=== PATIENT | female | born 1990 | race Caucasian/White ===

== ENCOUNTER 2021-07-17 18:04 | Emergency (ER) | payer OTHER ==
[~2021-07-17] VITALS: Ht 165.1 cm; Wt 97.5 kg
[2021-07-17] MEDS ORDERED: COZAAR25 MG PO (18:15)
[2021-07-17] MEDS ORDERED: CIPRO500 MG PO (22:04)
[2021-07-17] MEDS ORDERED: ZOFRAN8 MG PO (22:04)
[2021-07-17] MEDS ORDERED: PEPCID AC20 MG PO (22:04)
== END 2021-07-17 22:18 | disposition home or self-care (01) ==
LOC: ER 18:04
DX: K52.89 Other specified noninfective gastroenteritis and colitis (principal); Z03.818 Encounter for observation for suspected exposure to other biological agents ruled out

== ENCOUNTER 2022-02-25 11:35 | Emergency (ER) | payer OTHER ==
[~2022-02-25] VITALS: Ht 165.1 cm; Wt 88.5 kg
[~2022-02-25 11:35] MED LIST: CIPRO500 MG PO; COZAAR25 MG PO; PEPCID AC20 MG PO; ZOFRAN8 MG PO
[2022-02-25] MEDS ORDERED: OZEMPIC1 MG/0.71 SQ (11:48)
== END 2022-02-25 13:18 | disposition home or self-care (01) ==
LOC: ER 11:35
DX: R10.2 Pelvic and perineal pain (principal); I10 Essential (primary) hypertension; E11.9 Type 2 diabetes mellitus without complications